=== PATIENT | male | born 1950 | race Caucasian/White ===

== ENCOUNTER 2021-10-23 06:40 | Inpatient (IN) ==
[2021-10-17 11:59] LABS: Basophils # 0.1 10*3/uL (0.0-0.2); Basophils % 0.7 % (0.0-0.8); Eosinophils # 0.4 10*3/uL (0.0-0.87); Eosinophils % 4.2 % (0.00-10.9); Hemoglobin 15.6 GM/DL (14.0-18.0); Immature Granulocytes % 0.3 %; Immature Granulocytes Absolute 0.03 #; Lymphocytes # 2.7 10*3/uL (1.4-4.0); Lymphocytes % 31.8 % (21.2-54.2); Mean Corpuscular HGB Conc 34.7 GM/DL (32-36); Mean Corpuscular Volume 98.7 FL (87-102); Mean Platelet Volume 9.6 FL (9.6-12.0); Monocytes # 0.8 10*3/uL (0.11-0.8); Monocytes % 9.1 % (1.7-12.7); Neutrophils % 53.9 % (38.7-73.9); Platelet Count 217 T/CUMM (130-400); Red Blood Count 4.56 MC/CUMM (3.8-5.5); White Blood Count 8.6 T/CUMM (4-12)
[2021-10-17 12:31] LABS: Albumin 3.8 G/DL (3.4-5.0); Bilirubin,Total 0.5 MG/DL (0.20-1.00); Osmolality,Calculated 269.8 MOS/KG (273-304); Total Protein 7.1 G/DL (6.4-8.2)
[2021-10-23] MEDS ORDERED: HEPARIN/NACL 0.9% 2 UNITS/ML 1,000 UNIT/500 ML BAG IV ONE (07:03)
[2021-10-23] MEDS ORDERED: PHENYLEPHRINE DRIP 20 MG/250 ML PREMIX IV ONE (07:03)
[2021-10-23] MEDS ORDERED: NITROGLYCERIN DRIP 50 MG/250 ML BOTTLE IV ONE (07:03)
[2021-10-23] MEDS ORDERED: SODIUM CHLORIDE 0.9% 1,000 ML IV ONE (07:03)
[2021-10-23] MEDS ORDERED: LIDOCAINE 1% 5 ML VIAL ONE (07:28)
[2021-10-23] MEDS ORDERED: FAMOTIDINE 20 MG TABLET PO ONE (07:40)
[2021-10-23] MEDS ORDERED: DIAZEPAM 5 MG TABLET PO ONE (07:40)
[2021-10-23] MEDS ORDERED: FAMOTIDINE 20 MG TABLET ONE (07:43)
[2021-10-23] MEDS ORDERED: DIAZEPAM 5 MG TABLET ONE (07:43)
[2021-10-23] MEDS ORDERED: LACTATED RINGERS 1,000 ML IV SCH (08:00)
[2021-10-23] MEDS ORDERED: ROPIVACAINE 0.5% 30 ML VIAL ONE (09:46)
[2021-10-23] MEDS ORDERED: fentaNYL 100 MCG/2 ML VIAL ONE ×2 (09:48→11:09)
[2021-10-23] MEDS ORDERED: HEPARIN 5,000 UNIT/1 ML VIAL ONE (09:54)
[2021-10-23] MEDS ORDERED: LIDOCAINE 1% 50 ML VIAL ONE (09:54)
[2021-10-23] MEDS ORDERED: ROCURONIUM 50 MG/5 ML VIAL IV ONE (10:06)
[2021-10-23] MEDS ORDERED: ETOMIDATE 40 MG/20 ML VIAL IV ONE (10:06)
[2021-10-23] MEDS ORDERED: MIDAZOLAM 2 MG/2 ML VIAL ONE (10:06)
[2021-10-23] MEDS ORDERED: ONDANSETRON 4 MG/2 ML VIAL ONE (10:06)
[2021-10-23] MEDS ORDERED: SUCCINYLCHOLINE 200 MG/10 ML VIAL ONE (10:06)
[2021-10-23] MEDS ORDERED: propofoL 200 MG/20 ML VIAL IV ONE ×2 (10:06→11:28)
[2021-10-23] MEDS ORDERED: LIDOCAINE 2% 5 ML VIAL ONE (10:06)
[2021-10-23] MEDS ORDERED: ePHEDrine 50 MG/ML VIAL ONE (11:01)
[2021-10-23] MEDS ORDERED: HEPARIN 10,000 UNIT/10 ML VIAL ONE (11:24)
[2021-10-23] MEDS ORDERED: LACTATED RINGERS 1,000 ML IV ONE (11:24)
[2021-10-23] MEDS ORDERED: GLYCOPYRROLATE 0.4 MG/2 ML VIAL ONE (11:24)
[2021-10-23] MEDS ORDERED: ALBUMIN 5% 12.5 GM/250 ML VIAL IV ONE (11:36)
[2021-10-23] MEDS ORDERED: PROTAMINE SULFATE 50 MG/5 ML VIAL IV ONE (11:56)
[2021-10-23] MEDS ORDERED: ESMOLOL 100 MG/10 ML VIAL IV ONE (12:06)
[2021-10-23] MEDS ORDERED: oxyCODONE/ACETAMINOPHEN 5-325 MG TABLET PO PRN ×2 (12:08)
[2021-10-23] MEDS ORDERED: PROMETHAZINE 25 MG/1 ML VIAL IM PRN (12:08)
[2021-10-23] MEDS ORDERED: NALOXONE 0.4 MG/ML VIAL IV PRN (12:08)
[2021-10-23] MEDS ORDERED: GLUCAGON 1 MG VIAL IM PRN (12:08)
[2021-10-23] MEDS ORDERED: ONDANSETRON 4 MG/2 ML VIAL IV PRN (12:08)
[2021-10-23] MEDS ORDERED: HYDROmorphone 1 MG/1 ML SYRINGE IV PRN ×2 (12:08)
[2021-10-23] MEDS ORDERED: DEXTROSE 10% 250 ML BAG IV PRN (12:49)
[2021-10-23 13:24] VITALS: BP 163/80
[2021-10-23] MEDS: LACTATED RINGERS 1,000 ML IV SCH (13:37)
[2021-10-23] MEDS ORDERED: PHENYLEPHRINE DRIP 40 MG/250 ML PREMIX IV SCH (14:00)
[2021-10-23] MEDS ORDERED: NITROPRUSSIDE 100 MG in DEXTROSE 5% 250 ML IV SCH (14:00)
[2021-10-24] MEDS: LACTATED RINGERS 1,000 ML IV SCH ×2 (00:30→09:26)
[2021-10-24] MEDS ORDERED: ASPIRIN EC 81 MG TABLET PO SCH (09:00)
[2021-10-24] MEDS ORDERED: CLOPIDOGREL 75 MG TABLET PO SCH (09:00)
[2021-10-24] MEDS ORDERED: SIMVASTATIN 40 MG TABLET PO SCH (09:00)
[2021-10-24] MEDS ORDERED: METOPROLOL SUCCINATE XL 100 MG TABLET PO SCH (09:00)
[2021-10-24] MEDS ORDERED: CITALOPRAM 20 MG TABLET PO SCH (09:00)
== END 2021-10-24 14:20 | disposition home or self-care (01) | DRG 39 ==
LOC: N.OR 06:40 → N.SDSINP 06:42 → EDSTATUS 08:30 → N.SDSINP 12:08 → N.ICU 13:14
PROVIDERS: ADMIT Surgery; ATTEND Surgery

== ENCOUNTER 2021-11-08 06:22 | Inpatient (IN) ==
[2021-11-08] MEDS ORDERED: PANTOPRAZOLE 40 MG VIAL IV STA (07:11)
[2021-11-08 07:26] LABS: Basophils % 0.2 % (0.0-0.8); Eosinophils % 0.3 % (0.00-10.9); Hematocrit 30.3 VOL% (42.0-52.0); Hemoglobin 10.4 GM/DL (14.0-18.0); Immature Granulocytes % 0.9 %; Immature Granulocytes Absolute 0.11 #; Lymphocytes # 1.1 10*3/uL (1.4-4.0); Lymphocytes % 9.4 % (21.2-54.2); Mean Corpuscular HGB Conc 34.3 GM/DL (32-36); Mean Platelet Volume 10.4 FL (9.6-12.0); Monocytes # 0.8 10*3/uL (0.11-0.8); Monocytes % 6.4 % (1.7-12.7); Neutrophils % 82.8 % (38.7-73.9); Platelet Count 263 T/CUMM (130-400); Red Blood Count 3.06 MC/CUMM (3.8-5.5)
[2021-11-08] MEDS ORDERED: SODIUM CHLORIDE 0.9% 1,000 ML IV PRN (07:28)
[2021-11-08] MEDS ORDERED: SODIUM CHLORIDE 0.9% 1,000 ML IV STA (07:28)
[2021-11-08 07:34] LABS: INR 1.1; PT Patient Result 11.6 SECS (10.5-12.0); Partial Thromboplastin Time 24.6 SECS (23.8-32.1)
[2021-11-08 07:36] LABS: Calcium 8.5 MG/DL (8.5-10.1); Osmolality,Calculated 275.1 MOS/KG (273-304); Potassium 4.3 MMOL/L (3.5-5.1)
[2021-11-08] MEDS ORDERED: ACETAMINOPHEN 325 MG TABLET PO PRN (09:36)
[2021-11-08] MEDS ORDERED: ONDANSETRON 4 MG/2 ML VIAL IV PRN (09:36)
[2021-11-08] MEDS ORDERED: DEXTROSE 10% 25 GM/250 ML BAG IV PRN (09:36)
[2021-11-08] MEDS ORDERED: GLUCAGON 1 MG VIAL IM PRN (09:36)
[2021-11-08 10:32] LABS: Hematocrit 33.2 VOL% (42.0-52.0); Hemoglobin 11.3 GM/DL (14.0-18.0)
[2021-11-08] MEDS: NICOTINE 21 MG/24 HR PATCH TRANSDERM SCH (10:39)
[2021-11-08] MEDS: LACTATED RINGERS 1,000 ML IV SCH ×2 (10:41→19:26)
[2021-11-08 10:56] LABS: Thyroid Stimulating Hormone 1.15 uIU/ml (0.358-3.74)
[2021-11-08 17:46] LABS: Hemoglobin 10.4 GM/DL (14.0-18.0)
[2021-11-08] MEDS: ALUM/MAG/SIMETH/LIDO VISC 1:1 30 ML BOTTLE PO SCH (20:41)
[2021-11-08] MEDS: PANTOPRAZOLE 40 MG VIAL IV SCH (20:41)
[2021-11-08] MEDS ORDERED: ALUM/MAG/SIMETH/LIDO VISC 1:1 30 ML BOTTLE PO PRN (22:47)
[2021-11-09] MEDS: ALUM/MAG/SIMETH/LIDO VISC 1:1 30 ML BOTTLE PO SCH (00:07)
[2021-11-09] MEDS ORDERED: hydrALAZINE 20 MG/1 ML VIAL IV PRN (01:18)
[2021-11-09 01:39] LABS: Basophils % 0.2 % (0.0-0.8); Eosinophils % 0.1 % (0.00-10.9); Hematocrit 28.2 VOL% (42.0-52.0); Hemoglobin 9.7 GM/DL (14.0-18.0); Lymphocytes # 0.8 10*3/uL (1.4-4.0); Lymphocytes % 7.8 % (21.2-54.2); Mean Corpuscular HGB Conc 34.4 GM/DL (32-36); Mean Corpuscular Volume 93.7 FL (87-102); Mean Platelet Volume 9.9 FL (9.6-12.0); Monocytes # 0.7 10*3/uL (0.11-0.8); Neutrophils % 83.9 % (38.7-73.9); Platelet Count 221 T/CUMM (130-400); Red Blood Count 3.01 MC/CUMM (3.8-5.5); Red Cell Distribution Width 14.1 % (9.3-17.3); White Blood Count 9.9 T/CUMM (4-12)
[2021-11-09 01:53] LABS: Calcium 8.4 MG/DL (8.5-10.1); Osmolality,Calculated 273.1 MOS/KG (273-304); Potassium 3.8 MMOL/L (3.5-5.1)
[2021-11-09] MEDS: LACTATED RINGERS 1,000 ML IV SCH ×2 (03:37→16:36)
[2021-11-09] MEDS ORDERED: MORPHINE 2 MG/1 ML SYRINGE IV ONE (04:09)
[2021-11-09] MEDS ORDERED: NITROGLYCERIN 2% OINT 1 INCH/GM PACK TOP ONE (08:43)
[2021-11-09] MEDS ORDERED: CITALOPRAM 20 MG TABLET PO SCH (09:00)
[2021-11-09] MEDS ORDERED: SIMVASTATIN 40 MG TABLET PO SCH (09:00)
[2021-11-09] MEDS ORDERED: NITROGLYCERIN SL 0.4 MG TABLET SL PRN (09:55)
[2021-11-09] MEDS: PANTOPRAZOLE 40 MG VIAL IV SCH ×2 (10:05→21:19)
[2021-11-09] MEDS: NICOTINE 21 MG/24 HR PATCH TRANSDERM SCH (10:06)
[2021-11-09] MEDS ORDERED: METOPROLOL SUCCINATE XL 100 MG TABLET PO SCH (11:00)
[2021-11-09] MEDS ORDERED: POTASSIUM CHLORIDE RIDER 10 MEQ/100 ML PREMIX IV PRN ×2 (12:04→17:47)
[2021-11-09] MEDS ORDERED: DIAZEPAM 5 MG TABLET PO ONE (12:04)
[2021-11-09] MEDS ORDERED: MAGNESIUM SULF RIDER 2 GM/50 ML PREMIX IV PRN ×2 (12:04→17:47)
[2021-11-09] MEDS ORDERED: diphenhydrAMINE CAP 25 MG CAPSULE PO ONE (12:04)
[2021-11-09] MEDS ORDERED: MIDAZOLAM 2 MG/2 ML VIAL ONE (12:35)
[2021-11-09] MEDS ORDERED: fentaNYL 100 MCG/2 ML VIAL ONE (12:35)
[2021-11-09] MEDS ORDERED: NITROGLYCERIN DRIP 50 MG/250 ML BOTTLE IV ONE (12:40)
[2021-11-09] MEDS ORDERED: VERAPAMIL 5 MG/2 ML VIAL ONE (12:41)
[2021-11-09] MEDS ORDERED: FAMOTIDINE 20 MG/2 ML VIAL IV ONE ×2 (12:43→12:45)
[2021-11-09] MEDS ORDERED: ENOXAPARIN 30 MG/0.3 ML SYRINGE ONE (12:47)
[2021-11-09] MEDS ORDERED: LIDOCAINE 2% 5 ML VIAL ONE ×2 (13:48→17:43)
[2021-11-09] MEDS ORDERED: VECURONIUM 10 MG VIAL IV ONE ×3 (13:48→16:38)
[2021-11-09] MEDS ORDERED: MIDAZOLAM 10 MG/2 ML VIAL ONE ×4 (13:48→16:38)
[2021-11-09] MEDS ORDERED: ETOMIDATE 40 MG/20 ML VIAL IV ONE (13:48)
[2021-11-09] MEDS ORDERED: AMINOCAPROIC ACID 5,000 MG/20 ML VIAL ONE (13:48)
[2021-11-09] MEDS ORDERED: SUFentanil 250 MCG/5 ML AMP ONE ×2 (13:49)
[2021-11-09] MEDS ORDERED: VANCOMYCIN 500 MG VIAL ONE (13:51)
[2021-11-09] MEDS ORDERED: VANCOMYCIN 1,000 MG VIAL ONE (13:57)
[2021-11-09] MEDS ORDERED: PAPAVERINE 60 MG/2 ML VIAL ONE (13:57)
[2021-11-09] MEDS ORDERED: CEFUROXIME INJ 1,500 MG in SODIUM CHLORIDE 0.9% 100 ML IV ONE (14:05)
[2021-11-09] MEDS ORDERED: SODIUM BICARBONATE 50 MEQ/50 ML VIAL IV ONE ×2 (14:25→17:44)
[2021-11-09] MEDS ORDERED: POTASSIUM CHLORIDE RIDER 20 MEQ/100 ML PREMIX IV ONE (14:26)
[2021-11-09] MEDS ORDERED: NITROPRUSSIDE 50 MG/2 ML VIAL ONE (14:26)
[2021-11-09] MEDS ORDERED: CALCIUM CHLORIDE 1,000 MG/10 ML SYRINGE IV ONE (14:26)
[2021-11-09] MEDS ORDERED: PHENYLEPHRINE DRIP 40 MG/250 ML PREMIX IV ONE (14:26)
[2021-11-09 14:30] LABS: ABG Base Excess -3.2 MMOL/L (-2.5-2.5); ABG HCO3 21.8 MMOL/L (20-26); ABG Oxygen Saturation 99.8 % (95-100); ABG PH 7.344 (7.35-7.45); ABG TCO2 20.8 MMOL/L (23-27); Glucose Heart Surgery 119 MG/DL (74-106); Hematocrit Heart Surgery 26.6 PERCENT (42-52); Hemoglobin Heart Surgery 8.6 G/DL (14.0-18.0); Ionized Calcium Arterial 1.13 MMOL/L (1.21-1.46); PH Patient Temp Arterial 7.344; Patient Temperature 37 CELCIUS; Potassium Heart/CVR 3.6 MMOL/L (3.5-5.1); Sodium Heart/CVR 135 MMOL/L (135-145)
[2021-11-09] MEDS ORDERED: SODIUM CHLORIDE 0.9% 1,000 ML IV SCH (14:30)
[2021-11-09] MEDS ORDERED: SUCCINYLCHOLINE 200 MG/10 ML VIAL ONE (14:46)
[2021-11-09 15:23] LABS: Bacteria,Urine Occasional /HPF (Few); Mucus,Urine Occasional /LPF (Occasional); RBC,Urine 1 /HPF (0-4); Urine Appearance Clear (Clear); Urine Color Yellow (Yellow); Urine pH 5.5 (4.5-8.0)
[2021-11-09 15:24] LABS: Bilirubin,Urine Negative (Negative); Blood, Urine Trace mg/dL (Negative); Glucose,Urine (UA) Negative (Negative); Ketones,Urine 40 mg/dL (Negative); Nitrite,Urine Negative (Negative); Protein,Urine Negative (Negative); Urine Urobilinogen 0.2 eU/dL (<2.0)
[2021-11-09 16:16] LABS: Hematocrit Heart Surgery 23.3 PERCENT (42-52); Hemoglobin Heart Surgery 7.5 G/DL (14.0-18.0); PCO2 Patient Temp Venous 39.6 MM HG; PH Patient Temp Venous 7.437; Potassium Heart/CVR 3.6 MMOL/L (3.5-5.1); VBG Base Excess 2.5 MEQ/L (0-4); VBG HCO3 26.4 MEQ/L (24-28); VBG Oxygen Saturation 83.8 %; VBG PCO2 39.6 MMHG (41-51); VBG PH 7.437; VBG Total CO2 25.2 MMOL/L
[2021-11-09] MEDS ORDERED: HEPARIN/NACL 0.9% 2 UNITS/ML 1,000 UNIT/500 ML BAG IV ONE (16:26)
[2021-11-09 16:47] LABS: Hematocrit Heart Surgery 24.4 PERCENT (42-52); Hemoglobin Heart Surgery 7.8 G/DL (14.0-18.0); PCO2 Patient Temp Venous 38.2 MM HG; PH Patient Temp Venous 7.439; PO2 Patient Temp Venous 39.7 MM HG; Potassium Heart/CVR 3.6 MMOL/L (3.5-5.1); VBG Base Excess 1.7 MEQ/L (0-4); VBG HCO3 25.7 MEQ/L (24-28); VBG Oxygen Saturation 76.1 %; VBG PCO2 38.2 MMHG (41-51); VBG PH 7.439; VBG PO2 39.7 MMHG (17-40); VBG Total CO2 24.2 MMOL/L
[2021-11-09] MEDS ORDERED: CALCIUM CHLORIDE 1,000 MG/10 ML VIAL IV ONE (16:55)
[2021-11-09] MEDS ORDERED: MINERAL OIL/PETROLATUM OPH OINT 3.5 GM TUBE ONE (16:59)
[2021-11-09] MEDS ORDERED: LACTATED RINGERS 1,000 ML IV ONE (16:59)
[2021-11-09] MEDS ORDERED: SODIUM CHLORIDE 0.9% 300 ML IV ONE (16:59)
[2021-11-09] MEDS ORDERED: SEVOFLURANE 1 UNIT/15 MINUTE INH ONE (16:59)
[2021-11-09] MEDS ORDERED: SODIUM CHLORIDE 0.9% 250 ML IV ONE (16:59)
[2021-11-09] MEDS ORDERED: SODIUM CHLORIDE 0.9% 1,000 ML IV ONE (16:59)
[2021-11-09] MEDS ORDERED: PHENYLEPHRINE DRIP 20 MG/250 ML PREMIX IV ONE (17:00)
[2021-11-09 17:15] LABS: PCO2 Patient Temp Venous 45.5 MM HG; PH Patient Temp Venous 7.431; PO2 Patient Temp Venous 41.9 MM HG; Potassium Heart/CVR 3.5 MMOL/L (3.5-5.1); VBG Base Excess 5.4 MEQ/L (0-4); VBG PCO2 45.5 MMHG (41-51); VBG PH 7.431; VBG PO2 41.9 MMHG (17-40); VBG Total CO2 28.3 MMOL/L
[2021-11-09 17:40] LABS: ABG Base Excess 4.2 MMOL/L (-2.5-2.5); ABG HCO3 28.2 MMOL/L (20-26); ABG PCO2 40.5 MM HG (35-48); ABG PH 7.454 (7.35-7.45); ABG TCO2 26.2 MMOL/L (23-27); Glucose Heart Surgery 246 MG/DL (74-106); Hematocrit Heart Surgery 26.6 PERCENT (42-52); Hemoglobin Heart Surgery 8.6 G/DL (14.0-18.0); Ionized Calcium Arterial 1.12 MMOL/L (1.21-1.46); PCO2 Patient Temp Arterial 40.5 MMHG; PH Patient Temp Arterial 7.454; Patient Temperature 37 CELCIUS; Potassium Heart/CVR 3.2 MMOL/L (3.5-5.1); Sodium Heart/CVR 136 MMOL/L (135-145)
[2021-11-09] MEDS ORDERED: DEXTROSE 5% KCL 20 MEQ 20 MEQ/1,000 ML BAG IV ONE (17:43)
[2021-11-09] MEDS ORDERED: methylPREDNISolone SOD SUC 1,000 MG/8 ML VIAL ONE (17:43)
[2021-11-09] MEDS ORDERED: MAGNESIUM SULFATE 5 GM/10 ML VIAL IV ONE (17:43)
[2021-11-09] MEDS ORDERED: ALBUMIN 25% 25 GM/100 ML VIAL IV ONE (17:43)
[2021-11-09] MEDS ORDERED: PROTAMINE SULFATE 250 MG/25 ML VIAL IV ONE (17:43)
[2021-11-09] MEDS ORDERED: HEPARIN 10,000 UNIT/10 ML VIAL ONE (17:44)
[2021-11-09] MEDS ORDERED: ALBUMIN 5% 12.5 GM/250 ML VIAL IV ONE (17:44)
[2021-11-09] MEDS ORDERED: MANNITOL 12.5 GM/50 ML VIAL IV ONE (17:44)
[2021-11-09] MEDS ORDERED: FUROSEMIDE 20 MG/2 ML VIAL ONE (17:44)
[2021-11-09] MEDS ORDERED: CHLORHEXIDINE 4% SOLN 118 ML BOTTLE TOP PRN (17:47)
[2021-11-09] MEDS ORDERED: CALCIUM CHLORIDE 1,000 MG/10 ML SYRINGE IV PRN (17:47)
[2021-11-09] MEDS ORDERED: VECURONIUM 10 MG VIAL IV PRN ×2 (17:47)
[2021-11-09] MEDS ORDERED: MAGNESIUM SULF RIDER 4 GM/100 ML PREMIX IV PRN (17:47)
[2021-11-09] MEDS ORDERED: MIDAZOLAM 10 MG/2 ML VIAL IV PRN (17:47)
[2021-11-09] MEDS ORDERED: NITROPRUSSIDE 100 MG in DEXTROSE 5% 250 ML IV PRN (17:47)
[2021-11-09] MEDS ORDERED: INSULIN REGULAR 100 UNIT/ML IV PRN (17:47)
[2021-11-09] MEDS ORDERED: MIDAZOLAM 2 MG/2 ML VIAL IV PRN (17:47)
[2021-11-09] MEDS ORDERED: DEXTROSE 50% 25 GM/50 ML SYRINGE IV PRN ×2 (17:47)
[2021-11-09] MEDS ORDERED: LACTATED RINGERS 250 ML IV PRN (17:47)
[2021-11-09] MEDS ORDERED: ONDANSETRON 4 MG/2 ML VIAL IV PRN (17:47)
[2021-11-09] MEDS ORDERED: INSULIN REGULAR 100 UNIT/ML IV ONE (17:47)
[2021-11-09] MEDS ORDERED: MORPHINE 10 MG/1 ML VIAL IV PRN (17:47)
[2021-11-09] MEDS ORDERED: PHENYLEPHRINE DRIP 40 MG/250 ML PREMIX IV PRN (17:47)
[2021-11-09] MEDS ORDERED: ACETAMINOPHEN 650 MG SUPP RECTAL PRN (17:47)
[2021-11-09] MEDS: SODIUM CHLORIDE 0.45% 1,000 ML IV SCH ×2 (18:21)
[2021-11-09] MEDS ORDERED: PROTAMINE SULFATE 50 MG/5 ML VIAL IV ONE ×2 (18:25)
[2021-11-09] MEDS ORDERED: SODIUM CHLORIDE 0.9% 1,000 ML IV PRN (18:25)
[2021-11-09 18:47] LABS: ABG Base Excess 4.9 MMOL/L (-2.5-2.5); ABG HCO3 28.9 MMOL/L (20-26); ABG Oxygen Saturation 99.8 % (95-100); ABG PCO2 39.6 MM HG (35-48); ABG PH 7.471 (7.35-7.45); ABG TCO2 26.8 MMOL/L (23-27); Glucose Heart Surgery 224 MG/DL (74-106); Hematocrit Heart Surgery 25.7 PERCENT (42-52); Hemoglobin Heart Surgery 8.3 G/DL (14.0-18.0); Potassium Heart/CVR 3.1 MMOL/L (3.5-5.1)
[2021-11-09 18:48] LABS: Basophils % 0.2 % (0.0-0.8); Eosinophils % 0.3 % (0.00-10.9); Hematocrit 23.7 VOL% (42.0-52.0); Hemoglobin 8.2 GM/DL (14.0-18.0); Immature Granulocytes % 1.3 %; Immature Granulocytes Absolute 0.12 #; Lymphocytes % 10.8 % (21.2-54.2); Mean Corpuscular HGB Conc 34.6 GM/DL (32-36); Mean Corpuscular Volume 90.8 FL (87-102); Mean Platelet Volume 10.1 FL (9.6-12.0); Monocytes # 0.7 10*3/uL (0.11-0.8); Neutrophils % 80.4 % (38.7-73.9); Platelet Count 179 T/CUMM (130-400); Red Blood Count 2.61 MC/CUMM (3.8-5.5); Red Cell Distribution Width 14.7 % (9.3-17.3); White Blood Count 9.4 T/CUMM (4-12)
[2021-11-09 18:59] LABS: INR 1.2; PT Patient Result 13.4 SECS (10.5-12.0); Partial Thromboplastin Time 28.4 SECS (23.8-32.1)
[2021-11-09 19:06] LABS: CKMB % 6.28 %
[2021-11-09 19:10] LABS: High Sensitive Troponin I* 5752.8 ng/L (0-78)
[2021-11-09 19:13] LABS: Albumin 2.8 G/DL (3.4-5.0); Bilirubin,Total 1.4 MG/DL (0.20-1.00); Calcium 7.8 MG/DL (8.5-10.1); Osmolality,Calculated 284.4 MOS/KG (273-304); Potassium 3.2 MMOL/L (3.5-5.1); Total Protein 4.8 G/DL (6.4-8.2)
[2021-11-09] MEDS: INSULIN REGULAR DRIP 100 ML IV SCH (19:22)
[2021-11-09] MEDS: POTASSIUM CHLORIDE RIDER 20 MEQ/100 ML PREMIX IV PRN ×3 (19:23→21:40)
[2021-11-09] MEDS: LACTATED RINGERS 1,000 ML IV PRN ×2 (19:26→22:00)
[2021-11-09] MEDS ORDERED: NITROGLYCERIN DRIP 50 MG/250 ML BOTTLE IV PRN (19:37)
[2021-11-09 19:45] LABS: ABG Base Excess 5.3 MMOL/L (-2.5-2.5); ABG HCO3 29.2 MMOL/L (20-26); ABG Oxygen Saturation 99.8 % (95-100); ABG PCO2 38.9 MM HG (35-48); ABG PH 7.481 (7.35-7.45); ABG TCO2 27.2 MMOL/L (23-27); Glucose Heart Surgery 201 MG/DL (74-106); Hematocrit Heart Surgery 23.8 PERCENT (42-52); Hemoglobin Heart Surgery 7.6 G/DL (14.0-18.0); Potassium Heart/CVR 3.7 MMOL/L (3.5-5.1)
[2021-11-09 21:03] LABS: ABG Base Excess 4.6 MMOL/L (-2.5-2.5); ABG HCO3 28.6 MMOL/L (20-26); ABG Oxygen Saturation 99.6 % (95-100); ABG PH 7.472 (7.35-7.45); ABG TCO2 26.4 MMOL/L (23-27); Glucose Heart Surgery 157 MG/DL (74-106); Hematocrit Heart Surgery 25.4 PERCENT (42-52); Hemoglobin Heart Surgery 8.2 G/DL (14.0-18.0); Potassium Heart/CVR 3.6 MMOL/L (3.5-5.1)
[2021-11-09] MEDS: ALBUMIN 5% 12.5 GM/250 ML VIAL IV PRN ×2 (21:08→23:57)
[2021-11-09] MEDS: CHLORHEXIDINE 0.12% ORAL RINSE 60 ML BOTTLE SWISH/SPIT SCH (21:19)
[2021-11-10 01:35] LABS: ABG Base Excess 3.3 MMOL/L (-2.5-2.5); ABG HCO3 27.3 MMOL/L (20-26); ABG PCO2 45.6 MM HG (35-48); ABG PH 7.407 (7.35-7.45); ABG TCO2 24.7 MMOL/L (23-27); Glucose Heart Surgery 112 MG/DL (74-106); Hematocrit Heart Surgery 43.8 PERCENT (42-52); Hemoglobin Heart Surgery 14.3 G/DL (14.0-18.0)
[2021-11-10] MEDS: CEFUROXIME INJ 1,500 MG in SODIUM CHLORIDE 0.9% 100 ML IV SCH ×2 (01:58→13:13)
[2021-11-10 02:33] LABS: ABG Base Excess 3.3 MMOL/L (-2.5-2.5); ABG HCO3 27.3 MMOL/L (20-26); ABG Oxygen Saturation 97.4 % (95-100); ABG PCO2 42.2 MM HG (35-48); ABG PH 7.428 (7.35-7.45); ABG PO2 84.9 MM HG (80-95); Glucose Heart Surgery 124 MG/DL (74-106); Hematocrit Heart Surgery 24.7 PERCENT (42-52); Hemoglobin Heart Surgery 7.9 G/DL (14.0-18.0); Potassium Heart/CVR 3.6 MMOL/L (3.5-5.1)
[2021-11-10] MEDS: POTASSIUM CHLORIDE RIDER 20 MEQ/100 ML PREMIX IV PRN ×2 (02:49→04:15)
[2021-11-10 02:55] LABS: CKMB % 4.29 %
[2021-11-10 03:00] LABS: High Sensitive Troponin I* 5467.3 ng/L (0-78)
[2021-11-10 04:05] LABS: ABG Base Excess 2.5 MMOL/L (-2.5-2.5); ABG HCO3 26.6 MMOL/L (20-26); ABG Oxygen Saturation 97.8 % (95-100); ABG PCO2 43.1 MM HG (35-48); ABG PH 7.411 (7.35-7.45); ABG PO2 96.7 MM HG (80-95); Glucose Heart Surgery 126 MG/DL (74-106); Hematocrit Heart Surgery 29.7 PERCENT (42-52); Hemoglobin Heart Surgery 9.6 G/DL (14.0-18.0); Potassium Heart/CVR 3.8 MMOL/L (3.5-5.1)
[2021-11-10 04:08] LABS: Basophils % 0.1 % (0.0-0.8); Hematocrit 23.9 VOL% (42.0-52.0); Immature Granulocytes % 0.5 %; Immature Granulocytes Absolute 0.04 #; Lymphocytes # 0.3 10*3/uL (1.4-4.0); Lymphocytes % 3.5 % (21.2-54.2); Mean Corpuscular HGB Conc 33.5 GM/DL (32-36); Mean Corpuscular Volume 94.1 FL (87-102); Mean Platelet Volume 10.2 FL (9.6-12.0); Monocytes # 0.5 10*3/uL (0.11-0.8); Monocytes % 5.3 % (1.7-12.7); Neutrophils % 90.6 % (38.7-73.9); Platelet Count 168 T/CUMM (130-400); Red Blood Count 2.54 MC/CUMM (3.8-5.5); Red Cell Distribution Width 15.1 % (9.3-17.3); White Blood Count 8.8 T/CUMM (4-12)
[2021-11-10 04:32] LABS: Band Neutrophils 1 % (0-10); Lymphocytes 1 % (20-55); Total Cells Counted 100
[2021-11-10 04:33] LABS: Microcytosis Slight
[2021-11-10 04:37] LABS: Bilirubin,Direct 0.29 MG/DL (0.0-0.20); Calcium 8.3 MG/DL (8.5-10.1); Osmolality,Calculated 282.1 MOS/KG (273-304); Potassium 3.9 MMOL/L (3.5-5.1); Total Protein 5.5 G/DL (6.4-8.2)
[2021-11-10 04:51] LABS: Calcium 8.2 MG/DL (8.5-10.1); Osmolality,Calculated 283.1 MOS/KG (273-304); Potassium 3.9 MMOL/L (3.5-5.1); Risk Ratio 2.37
[2021-11-10 05:16] LABS: ABG Base Excess 2.8 MMOL/L (-2.5-2.5); ABG Oxygen Saturation 98.7 % (95-100); ABG PH 7.416 (7.35-7.45); ABG TCO2 25.9 MMOL/L (23-27); Glucose Heart Surgery 127 MG/DL (74-106); Hematocrit Heart Surgery 23.9 PERCENT (42-52); Hemoglobin Heart Surgery 7.7 G/DL (14.0-18.0); Potassium Heart/CVR 4.1 MMOL/L (3.5-5.1)
[2021-11-10] MEDS: INSULIN REGULAR 100 UNIT/ML SUBCUT SCH ×4 (07:35→20:18)
[2021-11-10] MEDS: NICOTINE 21 MG/24 HR PATCH TRANSDERM SCH ×2 (08:03→18:38)
[2021-11-10] MEDS: CHLORHEXIDINE 0.12% ORAL RINSE 60 ML BOTTLE SWISH/SPIT SCH ×2 (08:03→20:59)
[2021-11-10] MEDS: THIAMINE 200 MG/2 ML VIAL IV SCH (08:03)
[2021-11-10] MEDS: ASPIRIN EC 81 MG TABLET PO SCH (08:03)
[2021-11-10] MEDS: PANTOPRAZOLE 40 MG VIAL IV SCH ×2 (08:04→20:18)
[2021-11-10] MEDS: METOPROLOL TARTRATE 25 MG TABLET PO SCH ×2 (08:31→20:16)
[2021-11-10 08:38] LABS: ABG Base Excess 1.1 MMOL/L (-2.5-2.5); ABG HCO3 25.4 MMOL/L (20-26); ABG Oxygen Saturation 96.4 % (95-100); ABG PCO2 38.7 MM HG (35-48); ABG PH 7.426 (7.35-7.45); ABG PO2 78.6 MM HG (80-95); ABG TCO2 23.4 MMOL/L (23-27); Glucose Heart Surgery 170 MG/DL (74-106); Hematocrit Heart Surgery 27.7 PERCENT (42-52); Hemoglobin Heart Surgery 8.9 G/DL (14.0-18.0); Potassium Heart/CVR 4.1 MMOL/L (3.5-5.1)
[2021-11-10] MEDS: FOLIC ACID INJ 1 MG in SYRINGE 1 EACH IV SCH (08:41)
[2021-11-10 11:44] LABS: CKMB % 2.87 %; High Sensitive Troponin I* 3979.3 ng/L (0-78)
[2021-11-10 16:35] LABS: Hematocrit 24.8 VOL% (42.0-52.0); Hemoglobin 8.2 GM/DL (14.0-18.0)
[2021-11-10] MEDS: INSULIN REGULAR DRIP 100 ML IV SCH (17:27)
[2021-11-10 18:14] LABS: CKMB % 1.84 %; High Sensitive Troponin I* 2703.1 ng/L (0-78)
[2021-11-10] MEDS: ROSUVASTATIN 20 MG TABLET PO SCH (20:16)
[2021-11-10] MEDS: oxyCODONE/ACETAMINOPHEN 5-325 MG TABLET PO PRN (20:18)
[2021-11-10] MEDS: SODIUM CHLORIDE 0.45% 1,000 ML IV SCH ×2 (20:59)
[2021-11-10] MEDS: ASCORBIC ACID 500 MG TABLET PO SCH (20:59)
[2021-11-11] MEDS: CEFUROXIME INJ 1,500 MG in SODIUM CHLORIDE 0.9% 100 ML IV SCH (01:12)
[2021-11-11 04:29] LABS: Hematocrit 23.7 VOL% (42.0-52.0); Hemoglobin 7.8 GM/DL (14.0-18.0); Immature Granulocytes % 0.7 %; Immature Granulocytes Absolute 0.08 #; Lymphocytes # 0.8 10*3/uL (1.4-4.0); Lymphocytes % 6.8 % (21.2-54.2); Mean Corpuscular HGB Conc 32.9 GM/DL (32-36); Mean Corpuscular Volume 94.4 FL (87-102); Mean Platelet Volume 10.6 FL (9.6-12.0); Monocytes # 1.2 10*3/uL (0.11-0.8); Neutrophils % 82.5 % (38.7-73.9); Platelet Count 173 T/CUMM (130-400); Red Blood Count 2.51 MC/CUMM (3.8-5.5); Red Cell Distribution Width 15.1 % (9.3-17.3); White Blood Count 11.5 T/CUMM (4-12)
[2021-11-11 04:48] LABS: Lymphocytes 9 % (20-55); Total Cells Counted 100
[2021-11-11 04:49] LABS: Platelet Estimate Adequate
[2021-11-11 05:02] LABS: Albumin 2.6 G/DL (3.4-5.0); Bilirubin,Direct 0.19 MG/DL (0.0-0.20); Bilirubin,Total 0.5 MG/DL (0.20-1.00); Osmolality,Calculated 278.7 MOS/KG (273-304); Potassium 3.9 MMOL/L (3.5-5.1); Total Protein 4.9 G/DL (6.4-8.2)
[2021-11-11] MEDS: oxyCODONE/ACETAMINOPHEN 5-325 MG TABLET PO PRN ×2 (05:06→20:08)
[2021-11-11] MEDS: POTASSIUM CHLORIDE RIDER 20 MEQ/100 ML PREMIX IV PRN (05:42)
[2021-11-11] MEDS: INSULIN REGULAR 100 UNIT/ML SUBCUT SCH (08:42)
[2021-11-11] MEDS ORDERED: ONDANSETRON 4 MG/2 ML VIAL IV PRN (09:11)
[2021-11-11] MEDS ORDERED: ACETAMINOPHEN 325 MG TABLET PO PRN (09:11)
[2021-11-11] MEDS ORDERED: KETOROLAC 30 MG/1 ML VIAL IV PRN (09:11)
[2021-11-11] MEDS ORDERED: MORPHINE 2 MG/1 ML SYRINGE IV PRN (09:11)
[2021-11-11] MEDS ORDERED: MAGNESIUM SULF RIDER 4 GM/100 ML PREMIX IV PRN (09:11)
[2021-11-11] MEDS ORDERED: DEXTROSE 10% 25 GM/250 ML BAG IV PRN ×2 (09:11)
[2021-11-11] MEDS ORDERED: GLUCAGON 1 MG VIAL IM PRN ×2 (09:11)
[2021-11-11] MEDS ORDERED: MAGNESIUM SULF RIDER 2 GM/50 ML PREMIX IV PRN (09:11)
[2021-11-11] MEDS ORDERED: MAGNESIUM HYDROXIDE SUSP 30 ML UDCUP PO PRN (09:11)
[2021-11-11] MEDS: CHLORHEXIDINE 0.12% ORAL RINSE 60 ML BOTTLE SWISH/SPIT SCH ×2 (09:15→20:13)
[2021-11-11] MEDS: PANTOPRAZOLE 40 MG VIAL IV SCH (09:15)
[2021-11-11] MEDS ORDERED: SODIUM CHLOR 0.45% KCL 20 MEQ 20 MEQ/1,000 ML BAG IV SCH (09:30)
[2021-11-11] MEDS: NICOTINE 21 MG/24 HR PATCH TRANSDERM SCH (09:42)
[2021-11-11] MEDS: FOLIC ACID INJ 1 MG in SYRINGE 1 EACH IV SCH (09:47)
[2021-11-11] MEDS: MULTIVITAMIN (CENTRUM) TABLET PO SCH (09:47)
[2021-11-11] MEDS: CITALOPRAM 20 MG TABLET PO SCH (09:48)
[2021-11-11] MEDS: ASCORBIC ACID 500 MG TABLET PO SCH ×2 (09:48→20:08)
[2021-11-11] MEDS: THIAMINE 200 MG/2 ML VIAL IV SCH (09:48)
[2021-11-11] MEDS: METOPROLOL TARTRATE 25 MG TABLET PO SCH ×2 (09:48→20:09)
[2021-11-11] MEDS: ASPIRIN EC 81 MG TABLET PO SCH (09:49)
[2021-11-11] MEDS: ROSUVASTATIN 20 MG TABLET PO SCH (20:09)
[2021-11-12 03:43] LABS: Basophils % 0.1 % (0.0-0.8); Eosinophils % 0.1 % (0.00-10.9); Hematocrit 24.3 VOL% (42.0-52.0); Hemoglobin 7.9 GM/DL (14.0-18.0); Immature Granulocytes Absolute 0.24 #; Lymphocytes # 1.6 10*3/uL (1.4-4.0); Mean Corpuscular HGB Conc 32.5 GM/DL (32-36); Mean Corpuscular Volume 95.7 FL (87-102); Mean Platelet Volume 10.2 FL (9.6-12.0); Monocytes # 1.2 10*3/uL (0.11-0.8); Monocytes % 9.7 % (1.7-12.7); NRBC # 0.02 10*3/uL; Neutrophils % 75.1 % (38.7-73.9); Platelet Count 188 T/CUMM (130-400); Red Blood Count 2.54 MC/CUMM (3.8-5.5); Red Cell Distribution Width 14.8 % (9.3-17.3); White Blood Count 11.9 T/CUMM (4-12)
[2021-11-12 04:10] LABS: Alanine Aminotransferase 28 U/L (16-61); Albumin 2.5 G/DL (3.4-5.0); Alkaline Phosphatase 46 U/L (45-117); Aspartate Amino Transferase 40 U/L (0-37); Bilirubin,Indirect 0.2 MG/DL (0.0-1.0); Blood Urea Nitrogen 19 MG/DL (7-18); Calcium 8.4 MG/DL (8.5-10.1); Carbon Dioxide 27 MMOL/L (21-32); Chloride 104 MMOL/L (98-107); Estimated Glom Filtration Rate 124 ML/MIN; Glucose 112 MG/DL (74-106); Potassium 3.5 MMOL/L (3.5-5.1); Sodium 136 MMOL/L (136-145); Total Protein 5.4 G/DL (6.4-8.2)
[2021-11-12] MEDS ORDERED: FUROSEMIDE 40 MG/4 ML VIAL IV ONE (06:00)
[2021-11-12] MEDS: POTASSIUM CHLORIDE 20 MEQ TABLET PO PRN ×2 (06:09→08:19)
[2021-11-12] MEDS: CITALOPRAM 20 MG TABLET PO SCH (08:42)
[2021-11-12] MEDS: FERROUS SULFATE 325 MG TABLET PO SCH (08:46)
[2021-11-12] MEDS: MULTIVITAMIN (CENTRUM) TABLET PO SCH (08:46)
[2021-11-12] MEDS: DOCUSATE SODIUM 100 MG CAPSULE PO SCH (08:46)
[2021-11-12] MEDS: FOLIC ACID INJ 1 MG in SYRINGE 1 EACH IV SCH (08:46)
[2021-11-12] MEDS: CHLORHEXIDINE 0.12% ORAL RINSE 60 ML BOTTLE SWISH/SPIT SCH ×2 (08:47→20:41)
[2021-11-12] MEDS: METOPROLOL TARTRATE 25 MG TABLET PO SCH ×2 (08:47→20:41)
[2021-11-12] MEDS: ASCORBIC ACID 500 MG TABLET PO SCH ×2 (08:48→20:40)
[2021-11-12] MEDS: THIAMINE 200 MG/2 ML VIAL IV SCH (08:49)
[2021-11-12] MEDS: NICOTINE 21 MG/24 HR PATCH TRANSDERM SCH (08:50)
[2021-11-12] MEDS ORDERED: ASPIRIN EC 325 MG TABLET PO SCH (09:00)
[2021-11-12] MEDS ORDERED: PANTOPRAZOLE 40 MG TABLET PO SCH (09:00)
[2021-11-12] MEDS ORDERED: SODIUM CHLORIDE 0.9% 1,000 ML IV PRN (09:47)
[2021-11-12 17:18] LABS: Basophils % 0.2 % (0.0-0.8); Eosinophils # 0.1 10*3/uL (0.0-0.87); Eosinophils % 0.4 % (0.00-10.9); Hematocrit 24.7 VOL% (42.0-52.0); Hemoglobin 8.1 GM/DL (14.0-18.0); Immature Granulocytes Absolute 0.26 #; Lymphocytes # 2.3 10*3/uL (1.4-4.0); Lymphocytes % 17.3 % (21.2-54.2); Mean Corpuscular HGB Conc 32.8 GM/DL (32-36); Mean Corpuscular Volume 94.6 FL (87-102); Monocytes # 1.3 10*3/uL (0.11-0.8); Monocytes % 9.4 % (1.7-12.7); NRBC # 0.04 10*3/uL; Neutrophils % 70.7 % (38.7-73.9); Platelet Count 224 T/CUMM (130-400); Red Blood Count 2.61 MC/CUMM (3.8-5.5); Red Cell Distribution Width 14.5 % (9.3-17.3); White Blood Count 13.3 T/CUMM (4-12)
[2021-11-12] MEDS: PANTOPRAZOLE 40 MG TABLET PO SCH (20:41)
[2021-11-12] MEDS: ROSUVASTATIN 20 MG TABLET PO SCH (20:41)
[2021-11-12] MEDS: ZALEPLON 5 MG CAPSULE PO PRN (22:35)
[2021-11-12] MEDS: ALUMINUM/MAGNES/SIMETH MAX STR 30 ML UDCUP PO PRN (23:41)
[2021-11-13 04:43] LABS: Basophils % 0.2 % (0.0-0.8); Eosinophils # 0.1 10*3/uL (0.0-0.87); Eosinophils % 1.2 % (0.00-10.9); Hematocrit 20.8 VOL% (42.0-52.0); Hemoglobin 6.7 GM/DL (14.0-18.0); Immature Granulocytes % 2.4 %; Immature Granulocytes Absolute 0.23 #; Lymphocytes # 1.4 10*3/uL (1.4-4.0); Lymphocytes % 14.8 % (21.2-54.2); Mean Corpuscular HGB Conc 32.2 GM/DL (32-36); Mean Corpuscular Volume 95.9 FL (87-102); Mean Platelet Volume 9.9 FL (9.6-12.0); Monocytes # 0.8 10*3/uL (0.11-0.8); Monocytes % 8.4 % (1.7-12.7); NRBC # 0.02 10*3/uL; Platelet Count 199 T/CUMM (130-400); Red Blood Count 2.17 MC/CUMM (3.8-5.5); Red Cell Distribution Width 14.6 % (9.3-17.3); White Blood Count 9.7 T/CUMM (4-12)
[2021-11-13 05:15] LABS: Alanine Aminotransferase 31 U/L (16-61); Alkaline Phosphatase 40 U/L (45-117); Aspartate Amino Transferase 35 U/L (0-37); Bilirubin,Indirect 0.4 MG/DL (0.0-1.0); Blood Urea Nitrogen 22 MG/DL (7-18); Calcium 7.7 MG/DL (8.5-10.1); Carbon Dioxide 28 MMOL/L (21-32); Chloride 105 MMOL/L (98-107); Estimated Glom Filtration Rate 124 ML/MIN; Glucose 111 MG/DL (74-106); Osmolality,Calculated 276.8 MOS/KG (273-304); Potassium 3.6 MMOL/L (3.5-5.1); Sodium 137 MMOL/L (136-145); Total Protein 4.8 G/DL (6.4-8.2)
[2021-11-13] MEDS ORDERED: SODIUM CHLORIDE 0.9% 1,000 ML IV PRN (05:57)
[2021-11-13] MEDS: POTASSIUM CHLORIDE 20 MEQ TABLET PO PRN ×2 (06:15→09:02)
[2021-11-13] MEDS: ALUMINUM/MAGNES/SIMETH MAX STR 30 ML UDCUP PO PRN ×2 (06:15→20:21)
[2021-11-13] MEDS ORDERED: ASPIRIN EC 81 MG TABLET PO SCH (09:00)
[2021-11-13] MEDS: FOLIC ACID 1 MG TABLET PO SCH (09:01)
[2021-11-13] MEDS: DOCUSATE SODIUM 100 MG CAPSULE PO SCH (09:01)
[2021-11-13] MEDS: MULTIVITAMIN (CENTRUM) TABLET PO SCH (09:01)
[2021-11-13] MEDS: METOPROLOL TARTRATE 25 MG TABLET PO SCH ×2 (09:02→20:22)
[2021-11-13] MEDS: CITALOPRAM 20 MG TABLET PO SCH (09:02)
[2021-11-13] MEDS: PANTOPRAZOLE 40 MG TABLET PO SCH (09:02)
[2021-11-13] MEDS: THIAMINE 100 MG TABLET PO SCH (09:02)
[2021-11-13] MEDS: FERROUS SULFATE 325 MG TABLET PO SCH (09:02)
[2021-11-13] MEDS: NICOTINE 21 MG/24 HR PATCH TRANSDERM SCH (09:03)
[2021-11-13] MEDS: CHLORHEXIDINE 0.12% ORAL RINSE 60 ML BOTTLE SWISH/SPIT SCH ×2 (09:04→20:23)
[2021-11-13] MEDS: ASCORBIC ACID 500 MG TABLET PO SCH ×2 (09:05→20:22)
[2021-11-13 13:54] LABS: Hematocrit 28.9 VOL% (42.0-52.0); Hemoglobin 9.4 GM/DL (14.0-18.0)
[2021-11-13] MEDS: ROSUVASTATIN 20 MG TABLET PO SCH (20:21)
[2021-11-13] MEDS: ZALEPLON 5 MG CAPSULE PO PRN ×2 (20:22→21:55)
[2021-11-13] MEDS: PANTOPRAZOLE 40 MG VIAL IV SCH (20:23)
[2021-11-14 04:39] LABS: Basophils % 0.4 % (0.0-0.8); Eosinophils # 0.2 10*3/uL (0.0-0.87); Eosinophils % 2.4 % (0.00-10.9); Hematocrit 26.5 VOL% (42.0-52.0); Hemoglobin 8.8 GM/DL (14.0-18.0); Immature Granulocytes % 3.6 %; Immature Granulocytes Absolute 0.34 #; Lymphocytes # 1.7 10*3/uL (1.4-4.0); Lymphocytes % 17.4 % (21.2-54.2); Mean Corpuscular HGB Conc 33.2 GM/DL (32-36); Mean Platelet Volume 9.5 FL (9.6-12.0); Monocytes # 0.8 10*3/uL (0.11-0.8); Monocytes % 8.8 % (1.7-12.7); NRBC # 0.02 10*3/uL; Neutrophils % 67.4 % (38.7-73.9); Platelet Count 252 T/CUMM (130-400); Red Blood Count 2.82 MC/CUMM (3.8-5.5); Red Cell Distribution Width 14.3 % (9.3-17.3); White Blood Count 9.6 T/CUMM (4-12)
[2021-11-14 04:45] LABS: Calcium 8.2 MG/DL (8.5-10.1); Potassium 3.7 MMOL/L (3.5-5.1)
[2021-11-14] MEDS: POTASSIUM CHLORIDE 20 MEQ TABLET PO PRN ×2 (05:28→07:06)
[2021-11-14] MEDS: PANTOPRAZOLE 40 MG VIAL IV SCH ×2 (08:36→21:22)
[2021-11-14] MEDS: NICOTINE 21 MG/24 HR PATCH TRANSDERM SCH (08:36)
[2021-11-14] MEDS: METOPROLOL TARTRATE 25 MG TABLET PO SCH ×2 (08:37→21:33)
[2021-11-14] MEDS: CITALOPRAM 20 MG TABLET PO SCH (08:37)
[2021-11-14] MEDS: FOLIC ACID 1 MG TABLET PO SCH (08:37)
[2021-11-14] MEDS: DOCUSATE SODIUM 100 MG CAPSULE PO SCH (08:37)
[2021-11-14] MEDS: THIAMINE 100 MG TABLET PO SCH (08:37)
[2021-11-14] MEDS: ASCORBIC ACID 500 MG TABLET PO SCH ×2 (08:37→21:34)
[2021-11-14] MEDS: MULTIVITAMIN (CENTRUM) TABLET PO SCH (08:37)
[2021-11-14] MEDS: FERROUS SULFATE 325 MG TABLET PO SCH (08:37)
[2021-11-14] MEDS: CHLORHEXIDINE 0.12% ORAL RINSE 60 ML BOTTLE SWISH/SPIT SCH ×2 (08:37→21:34)
[2021-11-14] MEDS: ROSUVASTATIN 20 MG TABLET PO SCH (21:33)
[2021-11-14] MEDS: ALUMINUM/MAGNES/SIMETH MAX STR 30 ML UDCUP PO PRN (21:39)
[2021-11-14] MEDS: ZALEPLON 5 MG CAPSULE PO PRN ×2 (21:39→23:09)
[2021-11-15 02:53] LABS: Basophils % 0.4 % (0.0-0.8); Eosinophils # 0.3 10*3/uL (0.0-0.87); Eosinophils % 2.7 % (0.00-10.9); Hematocrit 22.7 VOL% (42.0-52.0); Hemoglobin 7.3 GM/DL (14.0-18.0); Immature Granulocytes % 3.6 %; Immature Granulocytes Absolute 0.41 #; Lymphocytes % 17.6 % (21.2-54.2); Mean Corpuscular HGB Conc 32.2 GM/DL (32-36); Mean Corpuscular Volume 95.8 FL (87-102); Mean Platelet Volume 9.3 FL (9.6-12.0); Monocytes # 0.9 10*3/uL (0.11-0.8); Neutrophils % 67.7 % (38.7-73.9); Platelet Count 278 T/CUMM (130-400); Red Blood Count 2.37 MC/CUMM (3.8-5.5); Red Cell Distribution Width 14.4 % (9.3-17.3); White Blood Count 11.4 T/CUMM (4-12)
[2021-11-15 03:03] LABS: PT Patient Result 10.7 SECS (10.5-12.0)
[2021-11-15 03:18] LABS: Alanine Aminotransferase 35 U/L (16-61); Albumin 2.2 G/DL (3.4-5.0); Alkaline Phosphatase 43 U/L (45-117); Aspartate Amino Transferase 31 U/L (0-37); Bilirubin,Indirect 0.5 MG/DL (0.0-1.0); Blood Urea Nitrogen 18 MG/DL (7-18); Calcium 7.8 MG/DL (8.5-10.1); Carbon Dioxide 28 MMOL/L (21-32); Chloride 106 MMOL/L (98-107); Estimated Glom Filtration Rate 124 ML/MIN; Glucose 110 MG/DL (74-106); Osmolality,Calculated 277.7 MOS/KG (273-304); Potassium 3.9 MMOL/L (3.5-5.1); Sodium 138 MMOL/L (136-145)
[2021-11-15] MEDS ORDERED: SODIUM CHLORIDE 0.9% 1,000 ML IV PRN ×2 (06:09→08:43)
[2021-11-15] MEDS ORDERED: propofoL 200 MG/20 ML VIAL IV ONE (08:17)
[2021-11-15] MEDS ORDERED: ETOMIDATE 20 MG/10 ML VIAL IV ONE (08:17)
[2021-11-15] MEDS ORDERED: LIDOCAINE 2% 5 ML VIAL ONE (08:17)
[2021-11-15] MEDS ORDERED: FUROSEMIDE 20 MG/2 ML VIAL IV PRN (08:43)
[2021-11-15] MEDS: DOCUSATE SODIUM 100 MG CAPSULE PO SCH (09:37)
[2021-11-15] MEDS: PANTOPRAZOLE 40 MG VIAL IV SCH ×2 (09:37→20:15)
[2021-11-15] MEDS: NICOTINE 21 MG/24 HR PATCH TRANSDERM SCH (09:37)
[2021-11-15] MEDS: MULTIVITAMIN (CENTRUM) TABLET PO SCH (09:37)
[2021-11-15] MEDS: FERROUS SULFATE 325 MG TABLET PO SCH (09:38)
[2021-11-15] MEDS: FOLIC ACID 1 MG TABLET PO SCH (09:38)
[2021-11-15] MEDS: CHLORHEXIDINE 0.12% ORAL RINSE 60 ML BOTTLE SWISH/SPIT SCH ×2 (09:38→20:15)
[2021-11-15] MEDS: CITALOPRAM 20 MG TABLET PO SCH (09:38)
[2021-11-15] MEDS: THIAMINE 100 MG TABLET PO SCH (09:38)
[2021-11-15] MEDS: ASCORBIC ACID 500 MG TABLET PO SCH ×2 (09:38→20:15)
[2021-11-15] MEDS: BISACODYL 5 MG TABLET PO SCH ×2 (09:45→16:29)
[2021-11-15] MEDS: METOPROLOL TARTRATE 25 MG TABLET PO SCH ×2 (09:45→20:15)
[2021-11-15] MEDS: POTASSIUM CHLORIDE 20 MEQ TABLET PO PRN (13:25)
[2021-11-15 14:23] LABS: Hematocrit 27.7 VOL% (42.0-52.0)
[2021-11-15 17:33] LABS: Basophils # 0.1 10*3/uL (0.0-0.2); Basophils % 0.4 % (0.0-0.8); Eosinophils # 0.2 10*3/uL (0.0-0.87); Eosinophils % 1.5 % (0.00-10.9); Hematocrit 26.5 VOL% (42.0-52.0); Hemoglobin 8.6 GM/DL (14.0-18.0); Immature Granulocytes % 2.3 %; Immature Granulocytes Absolute 0.36 #; Lymphocytes # 1.8 10*3/uL (1.4-4.0); Lymphocytes % 11.5 % (21.2-54.2); Mean Corpuscular HGB Conc 32.5 GM/DL (32-36); Mean Platelet Volume 9.1 FL (9.6-12.0); Monocytes # 1.2 10*3/uL (0.11-0.8); Monocytes % 7.6 % (1.7-12.7); NRBC # 0.03 10*3/uL; Neutrophils % 76.7 % (38.7-73.9); Platelet Count 317 T/CUMM (130-400); Red Blood Count 2.79 MC/CUMM (3.8-5.5); Red Cell Distribution Width 14.4 % (9.3-17.3); White Blood Count 15.4 T/CUMM (4-12)
[2021-11-15] MEDS ORDERED: POLYETHYLENE GLYCOL 3350/ELECTROLYTES 4,000 ML BOTTLE PO ONE (18:00)
[2021-11-15] MEDS: ROSUVASTATIN 20 MG TABLET PO SCH (20:14)
[2021-11-16] MEDS: BISACODYL 5 MG TABLET PO SCH (00:30)
[2021-11-16 04:52] LABS: Basophils % 0.2 % (0.0-0.8); Eosinophils # 0.1 10*3/uL (0.0-0.87); Eosinophils % 0.7 % (0.00-10.9); Hematocrit 23.5 VOL% (42.0-52.0); Hemoglobin 7.7 GM/DL (14.0-18.0); Immature Granulocytes % 2.7 %; Immature Granulocytes Absolute 0.38 #; Lymphocytes # 1.6 10*3/uL (1.4-4.0); Lymphocytes % 11.3 % (21.2-54.2); Mean Corpuscular HGB Conc 32.8 GM/DL (32-36); Mean Corpuscular Volume 94.4 FL (87-102); Mean Platelet Volume 9.1 FL (9.6-12.0); Monocytes # 0.9 10*3/uL (0.11-0.8); Monocytes % 6.6 % (1.7-12.7); NRBC # 0.02 10*3/uL; Neutrophils % 78.5 % (38.7-73.9); Platelet Count 302 T/CUMM (130-400); Red Blood Count 2.49 MC/CUMM (3.8-5.5); Red Cell Distribution Width 14.5 % (9.3-17.3)
[2021-11-16 05:16] LABS: Alanine Aminotransferase 32 U/L (16-61); Albumin 2.3 G/DL (3.4-5.0); Alkaline Phosphatase 48 U/L (45-117); Aspartate Amino Transferase 30 U/L (0-37); Bilirubin,Indirect 0.6 MG/DL (0.0-1.0); Blood Urea Nitrogen 15 MG/DL (7-18); Calcium 7.9 MG/DL (8.5-10.1); Carbon Dioxide 28 MMOL/L (21-32); Chloride 104 MMOL/L (98-107); Estimated Glom Filtration Rate 116 ML/MIN; Glucose 113 MG/DL (74-106); Osmolality,Calculated 274.8 MOS/KG (273-304); Potassium 3.9 MMOL/L (3.5-5.1); Sodium 137 MMOL/L (136-145); Total Protein 5.2 G/DL (6.4-8.2)
[2021-11-16] MEDS ORDERED: ETOMIDATE 20 MG/10 ML VIAL IV ONE (09:22)
[2021-11-16] MEDS ORDERED: LIDOCAINE 2% 5 ML VIAL ONE (09:22)
[2021-11-16] MEDS ORDERED: propofoL 200 MG/20 ML VIAL IV ONE ×2 (09:22→09:50)
[2021-11-16 11:49] LABS: Hematocrit 25.9 VOL% (42.0-52.0); Hemoglobin 8.4 GM/DL (14.0-18.0)
[2021-11-16] MEDS: FERROUS SULFATE 325 MG TABLET PO SCH (11:50)
[2021-11-16] MEDS: ASCORBIC ACID 500 MG TABLET PO SCH ×2 (11:50→21:25)
[2021-11-16] MEDS: MULTIVITAMIN (CENTRUM) TABLET PO SCH (11:50)
[2021-11-16] MEDS: DOCUSATE SODIUM 100 MG CAPSULE PO SCH (11:51)
[2021-11-16] MEDS: METOPROLOL TARTRATE 25 MG TABLET PO SCH ×2 (11:51→21:26)
[2021-11-16] MEDS: CITALOPRAM 20 MG TABLET PO SCH (11:51)
[2021-11-16] MEDS: THIAMINE 100 MG TABLET PO SCH (11:51)
[2021-11-16] MEDS: FOLIC ACID 1 MG TABLET PO SCH (11:51)
[2021-11-16] MEDS: NICOTINE 21 MG/24 HR PATCH TRANSDERM SCH (11:52)
[2021-11-16] MEDS: PANTOPRAZOLE 40 MG VIAL IV SCH ×2 (11:53→21:25)
[2021-11-16] MEDS: CHLORHEXIDINE 0.12% ORAL RINSE 60 ML BOTTLE SWISH/SPIT SCH ×2 (11:53→21:28)
[2021-11-16] MEDS: ROSUVASTATIN 20 MG TABLET PO SCH (21:26)
[2021-11-17 06:17] LABS: Basophils % 0.2 % (0.0-0.8); Eosinophils # 0.3 10*3/uL (0.0-0.87); Eosinophils % 2.8 % (0.00-10.9); Hematocrit 24.6 VOL% (42.0-52.0); Hemoglobin 7.9 GM/DL (14.0-18.0); Immature Granulocytes % 1.7 %; Immature Granulocytes Absolute 0.16 #; Lymphocytes # 1.6 10*3/uL (1.4-4.0); Lymphocytes % 17.4 % (21.2-54.2); Mean Corpuscular HGB Conc 32.1 GM/DL (32-36); Mean Platelet Volume 9.3 FL (9.6-12.0); Monocytes # 0.7 10*3/uL (0.11-0.8); Monocytes % 7.7 % (1.7-12.7); Neutrophils % 70.2 % (38.7-73.9); Platelet Count 302 T/CUMM (130-400); Red Blood Count 2.59 MC/CUMM (3.8-5.5); Red Cell Distribution Width 14.9 % (9.3-17.3); White Blood Count 9.3 T/CUMM (4-12)
[2021-11-17 06:36] LABS: Albumin 2.2 G/DL (3.4-5.0); Osmolality,Calculated 275.5 MOS/KG (273-304); Potassium 3.5 MMOL/L (3.5-5.1); Total Protein 5.1 G/DL (6.4-8.2)
[2021-11-17] MEDS ORDERED: POTASSIUM CHLORIDE 20 MEQ TABLET PO ONE (08:09)
[2021-11-17] MEDS: ASCORBIC ACID 500 MG TABLET PO SCH ×2 (09:23→21:56)
[2021-11-17] MEDS: CITALOPRAM 20 MG TABLET PO SCH (09:23)
[2021-11-17] MEDS: MULTIVITAMIN (CENTRUM) TABLET PO SCH (09:23)
[2021-11-17] MEDS: THIAMINE 100 MG TABLET PO SCH (09:23)
[2021-11-17] MEDS: DOCUSATE SODIUM 100 MG CAPSULE PO SCH (09:23)
[2021-11-17] MEDS: FERROUS SULFATE 325 MG TABLET PO SCH (09:23)
[2021-11-17] MEDS: METOPROLOL TARTRATE 25 MG TABLET PO SCH ×2 (09:24→21:56)
[2021-11-17] MEDS: FOLIC ACID 1 MG TABLET PO SCH (09:24)
[2021-11-17] MEDS: NICOTINE 21 MG/24 HR PATCH TRANSDERM SCH (09:25)
[2021-11-17] MEDS: PANTOPRAZOLE 40 MG VIAL IV SCH ×2 (09:30→21:57)
[2021-11-17] MEDS: CHLORHEXIDINE 0.12% ORAL RINSE 60 ML BOTTLE SWISH/SPIT SCH ×2 (09:30→22:45)
[2021-11-17 15:42] LABS: Hematocrit 25.6 VOL% (42.0-52.0); Hemoglobin 8.3 GM/DL (14.0-18.0)
[2021-11-17] MEDS: ROSUVASTATIN 20 MG TABLET PO SCH (21:56)
[2021-11-18 05:48] LABS: Basophils % 0.2 % (0.0-0.8); Eosinophils # 0.3 10*3/uL (0.0-0.87); Eosinophils % 2.5 % (0.00-10.9); Hematocrit 21.4 VOL% (42.0-52.0); Immature Granulocytes % 1.4 %; Immature Granulocytes Absolute 0.15 #; Lymphocytes # 1.6 10*3/uL (1.4-4.0); Lymphocytes % 15.5 % (21.2-54.2); Mean Corpuscular HGB Conc 32.7 GM/DL (32-36); Mean Corpuscular Volume 94.3 FL (87-102); Monocytes # 0.7 10*3/uL (0.11-0.8); Monocytes % 6.9 % (1.7-12.7); Neutrophils % 73.5 % (38.7-73.9); Platelet Count 306 T/CUMM (130-400); Red Blood Count 2.27 MC/CUMM (3.8-5.5); Red Cell Distribution Width 14.6 % (9.3-17.3); White Blood Count 10.5 T/CUMM (4-12)
[2021-11-18 06:06] LABS: Calcium 8.1 MG/DL (8.5-10.1); Potassium 3.7 MMOL/L (3.5-5.1)
[2021-11-18] MEDS ORDERED: ASPIRIN EC 81 MG TABLET PO SCH (09:00)
[2021-11-18] MEDS: MULTIVITAMIN (CENTRUM) TABLET PO SCH (09:06)
[2021-11-18] MEDS: FERROUS SULFATE 325 MG TABLET PO SCH (09:07)
[2021-11-18] MEDS: ASCORBIC ACID 500 MG TABLET PO SCH ×2 (09:07→21:09)
[2021-11-18] MEDS: THIAMINE 100 MG TABLET PO SCH (09:07)
[2021-11-18] MEDS: FOLIC ACID 1 MG TABLET PO SCH (09:07)
[2021-11-18] MEDS: NICOTINE 21 MG/24 HR PATCH TRANSDERM SCH (09:08)
[2021-11-18] MEDS: CITALOPRAM 20 MG TABLET PO SCH (09:08)
[2021-11-18] MEDS: DOCUSATE SODIUM 100 MG CAPSULE PO SCH (09:08)
[2021-11-18] MEDS: METOPROLOL TARTRATE 25 MG TABLET PO SCH ×2 (09:09→21:08)
[2021-11-18] MEDS: PANTOPRAZOLE 40 MG VIAL IV SCH ×2 (09:12→21:11)
[2021-11-18] MEDS: CHLORHEXIDINE 0.12% ORAL RINSE 60 ML BOTTLE SWISH/SPIT SCH ×2 (09:15→21:09)
[2021-11-18] MEDS ORDERED: SODIUM CHLORIDE 0.9% 1,000 ML IV PRN (10:47)
[2021-11-18 14:34] LABS: Hematocrit 23.6 VOL% (42.0-52.0); Hemoglobin 7.4 GM/DL (14.0-18.0)
[2021-11-18] MEDS: ROSUVASTATIN 20 MG TABLET PO SCH (21:08)
[2021-11-19 04:54] LABS: Basophils % 0.4 % (0.0-0.8); Eosinophils # 0.3 10*3/uL (0.0-0.87); Eosinophils % 2.4 % (0.00-10.9); Hematocrit 21.3 VOL% (42.0-52.0); Hemoglobin 6.7 GM/DL (14.0-18.0); Immature Granulocytes % 1.2 %; Immature Granulocytes Absolute 0.13 #; Lymphocytes # 1.8 10*3/uL (1.4-4.0); Lymphocytes % 16.9 % (21.2-54.2); Mean Corpuscular HGB Conc 31.5 GM/DL (32-36); Mean Corpuscular Volume 98.2 FL (87-102); Mean Platelet Volume 9.1 FL (9.6-12.0); Monocytes # 0.7 10*3/uL (0.11-0.8); Monocytes % 6.8 % (1.7-12.7); Neutrophils % 72.3 % (38.7-73.9); Platelet Count 367 T/CUMM (130-400); Red Blood Count 2.17 MC/CUMM (3.8-5.5); Red Cell Distribution Width 15.3 % (9.3-17.3); White Blood Count 10.5 T/CUMM (4-12)
[2021-11-19 05:09] LABS: Osmolality,Calculated 274.7 MOS/KG (273-304); Potassium 3.9 MMOL/L (3.5-5.1)
[2021-11-19] MEDS ORDERED: SODIUM CHLORIDE 0.9% 1,000 ML IV PRN (07:33)
[2021-11-19] MEDS ORDERED: FUROSEMIDE 40 MG/4 ML VIAL IV ONE (08:39)
[2021-11-19] MEDS: FOLIC ACID 1 MG TABLET PO SCH (09:40)
[2021-11-19] MEDS: MULTIVITAMIN (CENTRUM) TABLET PO SCH (09:40)
[2021-11-19] MEDS: ASCORBIC ACID 500 MG TABLET PO SCH ×2 (09:40→21:33)
[2021-11-19] MEDS: FERROUS SULFATE 325 MG TABLET PO SCH (09:40)
[2021-11-19] MEDS: THIAMINE 100 MG TABLET PO SCH (09:40)
[2021-11-19] MEDS: DOCUSATE SODIUM 100 MG CAPSULE PO SCH (09:41)
[2021-11-19] MEDS: METOPROLOL TARTRATE 25 MG TABLET PO SCH ×2 (09:41→21:33)
[2021-11-19] MEDS: POTASSIUM CHLORIDE 20 MEQ TABLET PO PRN (09:41)
[2021-11-19] MEDS: CITALOPRAM 20 MG TABLET PO SCH (09:41)
[2021-11-19] MEDS: NICOTINE 21 MG/24 HR PATCH TRANSDERM SCH (09:42)
[2021-11-19] MEDS: PANTOPRAZOLE 40 MG VIAL IV SCH ×2 (09:44→21:33)
[2021-11-19] MEDS: CHLORHEXIDINE 0.12% ORAL RINSE 60 ML BOTTLE SWISH/SPIT SCH ×2 (09:49→21:33)
[2021-11-19 15:28] LABS: Hematocrit 24.3 VOL% (42.0-52.0); Hemoglobin 7.8 GM/DL (14.0-18.0)
[2021-11-19] MEDS: ROSUVASTATIN 20 MG TABLET PO SCH (21:33)
[2021-11-20 05:23] LABS: Basophils % 0.3 % (0.0-0.8); Eosinophils # 0.2 10*3/uL (0.0-0.87); Eosinophils % 2.9 % (0.00-10.9); Hematocrit 20.9 VOL% (42.0-52.0); Hemoglobin 6.5 GM/DL (14.0-18.0); Immature Granulocytes % 1.2 %; Immature Granulocytes Absolute 0.09 #; Lymphocytes # 1.3 10*3/uL (1.4-4.0); Lymphocytes % 16.4 % (21.2-54.2); Mean Corpuscular HGB Conc 31.1 GM/DL (32-36); Mean Corpuscular Volume 97.7 FL (87-102); Mean Platelet Volume 9.3 FL (9.6-12.0); Monocytes # 0.6 10*3/uL (0.11-0.8); Monocytes % 8.3 % (1.7-12.7); Neutrophils % 70.9 % (38.7-73.9); Platelet Count 315 T/CUMM (130-400); Red Blood Count 2.14 MC/CUMM (3.8-5.5); Red Cell Distribution Width 16.2 % (9.3-17.3); White Blood Count 7.7 T/CUMM (4-12)
[2021-11-20 05:57] LABS: Calcium 7.9 MG/DL (8.5-10.1); Osmolality,Calculated 278.4 MOS/KG (273-304); Potassium 3.4 MMOL/L (3.5-5.1)
[2021-11-20] MEDS ORDERED: POTASSIUM CHLORIDE 20 MEQ TABLET PO ONE ×2 (07:31→13:23)
[2021-11-20 12:24] LABS: Hematocrit 29.1 VOL% (42.0-52.0)
[2021-11-20 12:26] LABS: Hemoglobin 9.3 GM/DL (14.0-18.0)
[2021-11-20] MEDS ORDERED: HEPARIN/NACL 0.9% 2 UNITS/ML 6,000 UNIT/3,000 ML BAG IV ONE (13:23)
[2021-11-20] MEDS ORDERED: DIAZEPAM 5 MG TABLET PO ONE (14:05)
[2021-11-20] MEDS ORDERED: MIDAZOLAM 10 MG/2 ML VIAL IV ONE (15:04)
[2021-11-20] MEDS ORDERED: fentaNYL 100 MCG/2 ML VIAL IV ONE (15:04)
[2021-11-20] MEDS ORDERED: MIDAZOLAM 2 MG/2 ML VIAL ONE (15:16)
[2021-11-20] MEDS: METOPROLOL TARTRATE 25 MG TABLET PO SCH ×2 (16:23→21:35)
[2021-11-20] MEDS: ASCORBIC ACID 500 MG TABLET PO SCH ×2 (16:25→21:35)
[2021-11-20] MEDS: CITALOPRAM 20 MG TABLET PO SCH (18:10)
[2021-11-20] MEDS: MULTIVITAMIN (CENTRUM) TABLET PO SCH (18:32)
[2021-11-20] MEDS: DOCUSATE SODIUM 100 MG CAPSULE PO SCH (18:33)
[2021-11-20] MEDS: FERROUS SULFATE 325 MG TABLET PO SCH (18:34)
[2021-11-20] MEDS: THIAMINE 100 MG TABLET PO SCH (18:35)
[2021-11-20] MEDS: FOLIC ACID 1 MG TABLET PO SCH (18:35)
[2021-11-20 20:22] LABS: Hematocrit 27.6 VOL% (42.0-52.0); Hemoglobin 8.8 GM/DL (14.0-18.0)
[2021-11-20] MEDS: PANTOPRAZOLE 40 MG VIAL IV SCH ×2 (21:00→22:01)
[2021-11-20] MEDS: oxyCODONE/ACETAMINOPHEN 5-325 MG TABLET PO PRN (21:36)
[2021-11-20] MEDS: ROSUVASTATIN 20 MG TABLET PO SCH (21:36)
[2021-11-20] MEDS: CHLORHEXIDINE 0.12% ORAL RINSE 60 ML BOTTLE SWISH/SPIT SCH ×2 (21:37→22:01)
[2021-11-20] MEDS: NICOTINE 21 MG/24 HR PATCH TRANSDERM SCH (22:01)
[2021-11-21 05:11] LABS: Basophils % 0.3 % (0.0-0.8); Eosinophils % 0.4 % (0.00-10.9); Hematocrit 24.2 VOL% (42.0-52.0); Hemoglobin 7.6 GM/DL (14.0-18.0); Immature Granulocytes % 1.1 %; Immature Granulocytes Absolute 0.12 #; Lymphocytes # 0.9 10*3/uL (1.4-4.0); Lymphocytes % 8.5 % (21.2-54.2); Mean Corpuscular HGB Conc 31.4 GM/DL (32-36); Mean Corpuscular Volume 97.2 FL (87-102); Mean Platelet Volume 9.3 FL (9.6-12.0); Monocytes # 0.6 10*3/uL (0.11-0.8); Monocytes % 5.5 % (1.7-12.7); Neutrophils % 84.2 % (38.7-73.9); Platelet Count 349 T/CUMM (130-400); Red Blood Count 2.49 MC/CUMM (3.8-5.5); Red Cell Distribution Width 16.6 % (9.3-17.3); White Blood Count 10.5 T/CUMM (4-12)
[2021-11-21 05:37] LABS: Calcium 7.3 MG/DL (8.5-10.1); Osmolality,Calculated 275.5 MOS/KG (273-304); Potassium 3.5 MMOL/L (3.5-5.1)
[2021-11-21] MEDS: FOLIC ACID 1 MG TABLET PO SCH (09:22)
[2021-11-21] MEDS: THIAMINE 100 MG TABLET PO SCH (09:22)
[2021-11-21] MEDS: MULTIVITAMIN (CENTRUM) TABLET PO SCH (09:22)
[2021-11-21] MEDS: POLYETHYLENE GLYCOL POWDER 17 GM PACK PO SCH ×2 (09:22→21:45)
[2021-11-21] MEDS: DOCUSATE SODIUM 100 MG CAPSULE PO SCH (09:22)
[2021-11-21] MEDS: ASCORBIC ACID 500 MG TABLET PO SCH ×2 (09:22→21:45)
[2021-11-21] MEDS: CITALOPRAM 20 MG TABLET PO SCH (09:22)
[2021-11-21] MEDS: FERROUS SULFATE 325 MG TABLET PO SCH (09:22)
[2021-11-21] MEDS: METOPROLOL TARTRATE 25 MG TABLET PO SCH ×2 (09:22→21:44)
[2021-11-21] MEDS: CHLORHEXIDINE 0.12% ORAL RINSE 60 ML BOTTLE SWISH/SPIT SCH ×2 (09:23→21:40)
[2021-11-21] MEDS: PANTOPRAZOLE 40 MG VIAL IV SCH ×2 (09:23→21:44)
[2021-11-21] MEDS: NICOTINE 21 MG/24 HR PATCH TRANSDERM SCH (10:18)
[2021-11-21 12:37] LABS: Hematocrit 25.9 VOL% (42.0-52.0); Hemoglobin 8.4 GM/DL (14.0-18.0)
[2021-11-21 18:02] LABS: Hematocrit 26.5 VOL% (42.0-52.0); Hemoglobin 8.4 GM/DL (14.0-18.0)
[2021-11-21] MEDS: ROSUVASTATIN 20 MG TABLET PO SCH (21:44)
[2021-11-22 05:53] LABS: Basophils % 0.3 % (0.0-0.8); Eosinophils # 0.1 10*3/uL (0.0-0.87); Eosinophils % 0.9 % (0.00-10.9); Hematocrit 24.9 VOL% (42.0-52.0); Hemoglobin 7.8 GM/DL (14.0-18.0); Immature Granulocytes % 0.8 %; Lymphocytes # 0.8 10*3/uL (1.4-4.0); Lymphocytes % 6.6 % (21.2-54.2); Mean Corpuscular HGB Conc 31.3 GM/DL (32-36); Mean Corpuscular Volume 96.1 FL (87-102); Mean Platelet Volume 8.9 FL (9.6-12.0); Monocytes # 0.7 10*3/uL (0.11-0.8); Monocytes % 5.6 % (1.7-12.7); Neutrophils % 85.8 % (38.7-73.9); Platelet Count 356 T/CUMM (130-400); Red Blood Count 2.59 MC/CUMM (3.8-5.5); Red Cell Distribution Width 16.8 % (9.3-17.3); White Blood Count 12.8 T/CUMM (4-12)
[2021-11-22 06:03] LABS: INR 1.1; PT Patient Result 11.6 SECS (10.5-12.0)
[2021-11-22 06:11] LABS: Calcium 8.4 MG/DL (8.5-10.1); Potassium 3.5 MMOL/L (3.5-5.1)
[2021-11-22] MEDS: ASCORBIC ACID 500 MG TABLET PO SCH (10:48)
[2021-11-22] MEDS: METOPROLOL TARTRATE 25 MG TABLET PO SCH (10:48)
[2021-11-22] MEDS: FOLIC ACID 1 MG TABLET PO SCH (10:48)
[2021-11-22] MEDS: MULTIVITAMIN (CENTRUM) TABLET PO SCH (10:48)
[2021-11-22] MEDS: FERROUS SULFATE 325 MG TABLET PO SCH (10:48)
[2021-11-22] MEDS: POLYETHYLENE GLYCOL POWDER 17 GM PACK PO SCH (10:49)
[2021-11-22] MEDS: DOCUSATE SODIUM 100 MG CAPSULE PO SCH (10:49)
[2021-11-22] MEDS: CITALOPRAM 20 MG TABLET PO SCH (10:49)
[2021-11-22] MEDS: THIAMINE 100 MG TABLET PO SCH (10:49)
[2021-11-22] MEDS: NICOTINE 21 MG/24 HR PATCH TRANSDERM SCH (10:50)
[2021-11-22] MEDS: CHLORHEXIDINE 0.12% ORAL RINSE 60 ML BOTTLE SWISH/SPIT SCH (10:51)
[2021-11-22] MEDS: PANTOPRAZOLE 40 MG VIAL IV SCH (10:55)
[2021-11-22 13:25] VITALS: BP 120/75
== END 2021-11-22 14:09 | disposition home health service (06) | DRG 981 ==
LOC: N.ED 06:22 → SUATTDRO 08:45 → N.EDINP 08:45 → N.5E 15:12 → N.CVR 11-09 14:51 → N.ICU 11-10 10:47 → N.TELES 11-15 20:17
PROVIDERS: ADMIT Internal Medicine; ATTEND Internal Medicine
PROC: IRAGMES (2021-11-20 10:20)